=== PATIENT | female | born 1980 | race Caucasian/White ===

== ENCOUNTER 2017-03-29 07:53 | Inpatient (IN) | payer MEDICAID, OTHER ==
[~2017-03-29] VITALS: Ht 165.1 cm; Wt 70.9 kg
[2017-03-29] MEDS ORDERED: LACTATED RINGERS 1,000 ML IV SCH ×2 (12:30→12:33)
[2017-03-29] MEDS ORDERED: OXYTOCIN 30U/ 0.9% NaCL 500ML 500 ML IV SCH (12:33)
[2017-03-29] MEDS ORDERED: SODIUM CITRATE/CITRIC ACID 30 ML UDC ONE (12:49)
[2017-03-29] MEDS ORDERED: NEWBORN KIT ONE (12:49)
[2017-03-29] MEDS ORDERED: METOCLOPRAMIDE 5 MG/ML, 2ML ONE (12:49)
[2017-03-29] MEDS ORDERED: OXYTOCIN 30U/ 0.9% NaCL 500ML 500 ML ONE ×2 (12:49→15:29)
[2017-03-29] MEDS ORDERED: METOCLOPRAMIDE 5 MG/ML, 2ML IV ONE (13:00)
[2017-03-29] MEDS ORDERED: LACTATED RINGERS 1,000 ML IVBOLUS ONE (13:00)
[2017-03-29] MEDS ORDERED: SODIUM CITRATE/CITRIC ACID 30 ML UDC PO ONE (13:00)
[2017-03-29 13:05] LABS: BASOPHILS # (AUTO) 0.02 x10^3/uL (0-0.1); BASOPHILS % (AUTO) 0 % (0-1); EOSINOPHILS # (AUTO) 0.03 x10^3/uL (0-0.4); EOSINOPHILS % (AUTO) 0 % (1-7); LYMPHOCYTES # (AUTO) 1.26 x10^3/uL (1-3.4); LYMPHOCYTES % (AUTO) 18 % (22-44); MD NO; MEAN CORPUSCULAR HEMOGLOBIN 30.1 pg (27.0-34.8); MEAN CORPUSCULAR HGB CONC 34.3 g/dL (32.4-35.8); MEAN CORPUSCULAR VOLUME 87.7 fL (80-100); MONOCYTES # (AUTO) 0.71 x10^3/uL (0.2-0.8); MONOCYTES % (AUTO) 10 % (2-9); NEUTROPHILS # (AUTO) 4.92 x10^3/uL (1.8-6.8); NEUTROPHILS % (AUTO) 71 % (42-75); PLATELET COUNT 168 x10^3/uL (130-400); RED BLOOD COUNT 3.77 x10^6/uL (3.82-5.3)
[2017-03-29] MEDS: LACTATED RINGERS 1,000 ML IV SCH ×4 (13:39→21:39)
[2017-03-29] MEDS: OXYTOCIN 30U/ 0.9% NaCL 500ML 500 ML IV SCH ×2 (13:39→23:39)
[2017-03-29] MEDS ORDERED: KETOROLAC 30 MG/1 ML ONE (13:45)
[2017-03-29] MEDS ORDERED: ONDANSETRON 2MG/ML, 2ML ONE (13:45)
[2017-03-29] MEDS ORDERED: EPHEDRINE 50 MG/ML, 1ML ONE (13:45)
[2017-03-29] MEDS ORDERED: FENTANYL PF 100 MCG/2ML ONE (13:45)
[2017-03-29] MEDS ORDERED: CEFAZOLIN 1,000 MG ONE (13:45)
[2017-03-29] MEDS ORDERED: OXYTOCIN 10 UNITS/ML, 1ML ONE (13:45)
[2017-03-29] MEDS ORDERED: DEXAMETHASONE 4 MG/ML, 1ML ONE (13:45)
[2017-03-29] MEDS ORDERED: PHENYLEPHRINE 10 MG/ML ONE (13:45)
[2017-03-29] MEDS ORDERED: ONDANSETRON 2MG/ML, 2ML IV PRN (14:00)
[2017-03-29] MEDS ORDERED: OXYcodone 5 MG/5 ML ORAL.SOL UDC PO PRN (14:00)
[2017-03-29] MEDS ORDERED: HYDROcodone/APAP 7.5-325MG/15ML UDC PO PRN (14:00)
[2017-03-29] MEDS ORDERED: OXYcodone IR 5MG TABLET PO PRN (14:00)
[2017-03-29] MEDS ORDERED: PROMETHAZINE 25 MG/ML, 1ML IV PRN (14:00)
[2017-03-29] MEDS ORDERED: BISACODYL 10 MG SUPP PR PRN (14:00)
[2017-03-29] MEDS ORDERED: METHYLERGONOVINE 0.2 MG/ML IM PRN (14:00)
[2017-03-29] MEDS ORDERED: SIMETHICONE 80 MG CHEW TAB PO PRN (14:00)
[2017-03-29] MEDS ORDERED: MISOPROSTOL 200 MCG TABLET PR PRN (14:00)
[2017-03-29] MEDS ORDERED: FENTANYL PF 100 MCG/2ML IV PRN (14:00)
[2017-03-29] MEDS ORDERED: hydrALAzine 20 MG/ML, 1ML IV PRN (14:00)
[2017-03-29] MEDS ORDERED: CALCIUM CARBONATE 500 MG TAB.CHEW PO PRN (14:00)
[2017-03-29] MEDS ORDERED: ALBUTEROL SULFATE 2.5 MG/3 ML NPPB PRN (14:00)
[2017-03-29] MEDS: KETOROLAC 30 MG/1 ML IV SCH ×2 (14:00→20:10)
[2017-03-29] MEDS ORDERED: LABETALOL 5MG/ML, 20ML IV PRN (14:00)
[2017-03-29] MEDS ORDERED: HYDROmorphone 1 MG/ML, 1ML IV PRN (14:00)
[2017-03-29] MEDS: IBUPROFEN 600 MG TABLET PO SCH ×2 (14:00→20:00)
[2017-03-29] MEDS ORDERED: EPHEDRINE 50 MG/ML, 1ML IVPush PRN (14:00)
[2017-03-29] MEDS ORDERED: ONDANSETRON 2MG/ML, 2ML IVPush PRN (14:00)
[2017-03-29] MEDS ORDERED: MEPERIDINE/PF 25MG/0.5ML IVPush PRN (14:00)
[2017-03-29] MEDS ORDERED: morphine SULFATE 10 MG/ML, 1ML IVPush PRN ×2 (14:00)
[2017-03-29] MEDS ORDERED: MIDAZOLAM 1 MG/ML, 2ML IV PRN (14:00)
[2017-03-29] MEDS ORDERED: OXYTOCIN 30U/ 0.9% NaCL 500ML 500 ML IV ONE (15:34)
[2017-03-29] MEDS ORDERED: OXYcodone 5 MG/5 ML ORAL.SOL UDC ONE (16:58)
[2017-03-29 19:45] VITALS: BP 120/66
[2017-03-29 22:18] LABS: BASOPHILS % (AUTO) 0 % (0-1); EOSINOPHILS % (AUTO) 0 % (1-7); LYMPHOCYTES # (AUTO) 0.91 x10^3/uL (1-3.4); LYMPHOCYTES % (AUTO) 7 % (22-44); MD NO; MEAN CORPUSCULAR HEMOGLOBIN 30.3 pg (27.0-34.8); MEAN CORPUSCULAR HGB CONC 33.9 g/dL (32.4-35.8); MEAN CORPUSCULAR VOLUME 89.2 fL (80-100); MEAN PLATELET VOLUME 7.4 fL (7.4-10.4); MONOCYTES # (AUTO) 0.47 x10^3/uL (0.2-0.8); MONOCYTES % (AUTO) 4 % (2-9); NEUTROPHILS # (AUTO) 11.94 x10^3/uL (1.8-6.8); NEUTROPHILS % (AUTO) 90 % (42-75); PLATELET COUNT 155 x10^3/uL (130-400); RED CELL DISTRIBUTION WIDTH 12.5 % (9.6-15.2)
[2017-03-30] MEDS: OXYcodone IR 5MG TABLET PO PRN ×5 (00:06→19:59)
[2017-03-30] MEDS: ACETAMINOPHEN 325 MG TABLET PO SCH ×5 (00:07→18:20)
[2017-03-30 00:15] VITALS: BP 110/66
[2017-03-30] MEDS: KETOROLAC 30 MG/1 ML IV SCH ×2 (01:52→08:11)
[2017-03-30] MEDS: IBUPROFEN 600 MG TABLET PO SCH ×4 (02:00→19:59)
[2017-03-30 03:55] VITALS: BP 112/68
[2017-03-30] MEDS: LACTATED RINGERS 1,000 ML IV SCH ×2 (05:39→09:39)
[2017-03-30 07:55] VITALS: BP 104/65
[2017-03-30] MEDS: PRENATAL VIT/IRON/FA 1 EACH TABLET PO SCH (08:11)
[2017-03-30] MEDS: DOCUSATE 100 MG CAPSULE PO PRN ×2 (08:11→19:59)
[2017-03-30] MEDS: OXYTOCIN 30U/ 0.9% NaCL 500ML 500 ML IV SCH (09:39)
[2017-03-30 12:00] VITALS: BP 112/68
[2017-03-30 19:41] VITALS: BP 99/64
[2017-03-31] MEDS: ACETAMINOPHEN 325 MG TABLET PO SCH ×4 (00:03→18:05)
[2017-03-31] MEDS: IBUPROFEN 600 MG TABLET PO SCH ×4 (02:18→21:25)
[2017-03-31] MEDS: OXYcodone IR 5MG TABLET PO PRN (02:20)
[2017-03-31 07:45] VITALS: BP 110/71
[2017-03-31] MEDS: PRENATAL VIT/IRON/FA 1 EACH TABLET PO SCH (07:48)
[2017-03-31] MEDS: DOCUSATE 100 MG CAPSULE PO PRN ×2 (07:48→21:25)
[2017-03-31 19:25] VITALS: BP 129/79
[2017-04-01] MEDS: IBUPROFEN 600 MG TABLET PO SCH ×5 (03:49→23:46)
[2017-04-01] MEDS: ACETAMINOPHEN 325 MG TABLET PO SCH ×4 (06:10→17:55)
[2017-04-01 07:54] VITALS: BP 118/78
[2017-04-01] MEDS: DOCUSATE 100 MG CAPSULE PO PRN (10:03)
[2017-04-01] MEDS: PRENATAL VIT/IRON/FA 1 EACH TABLET PO SCH (10:03)
[2017-04-01 19:08] VITALS: BP 114/78
[2017-04-02 07:25] VITALS: BP 113/75
[2017-04-02] MEDS: PRENATAL VIT/IRON/FA 1 EACH TABLET PO SCH (08:24)
[2017-04-02] MEDS: ACETAMINOPHEN 325 MG TABLET PO SCH ×2 (08:24)
[2017-04-02] MEDS: DOCUSATE 100 MG CAPSULE PO PRN (08:24)
[2017-04-02] MEDS: IBUPROFEN 600 MG TABLET PO SCH (10:33)
[2017-04-02] MEDS ORDERED: IBUP-1222 PO (13:00)
[2017-04-02] MEDS ORDERED: DOCU-131 PO (13:04)
[2017-04-02] MEDS ORDERED: OXYC-302 PO (13:05)
[2017-04-02] MEDS ORDERED: PREN1TAB98 PO (13:07)
== END 2017-04-02 17:04 | disposition home or self-care (01) | DRG 766 ==
LOC: LDIP 12:04 → 2NW 17:11
PROVIDERS: ADMIT Obstetrics & Gynecology; ATTEND Obstetrics & Gynecology
PROC: 10D00Z1 Extraction of Products of Conception, Low, Open Approach (ICD-10-PCS; principal; 2017-03-29)
DX: O32.1XX0 Maternal care for breech presentation, not applicable or unspecified (principal); D25.2 Subserosal leiomyoma of uterus; O34.13 Maternal care for benign tumor of corpus uteri, third trimester; Z37.0 Single live birth; Z3A.39 39 weeks gestation of pregnancy
CPT/HCPCS: 36415; 85025; 86850; 86900; J0690; J1100; J1885; J2405; J3010; J2370; J2590; J2765; J7120

== ENCOUNTER 2019-10-10 12:09 | Outpatient (CLI) | payer BC, OTHER ==
[~2019-10-10 12:09] MED LIST: DOCU-131 PO; IBUP-1222 PO; OXYC-302 PO; PREN1TAB98 PO
== END 2019-10-10 23:59 | disposition home or self-care (01) ==
LOC: SMMGROBB 12:09
PROVIDERS: ATTEND Obstetrics & Gynecology
DX: Z11.59 Encounter for screening for other viral diseases (principal)
CPT/HCPCS: 36415; 87635

== ENCOUNTER 2019-10-20 22:56 | Inpatient (IN) | payer BC ==
[~2019-10-20] VITALS: Ht 165.1 cm; Wt 75.0 kg
[2019-10-20] MEDS ORDERED: OXYTOCIN 30U/ 0.9% NaCL 500ML 500 ML IV ONE (22:58)
[2019-10-20] MEDS ORDERED: LACTATED RINGERS 1,000 ML IV SCH (22:58)
[2019-10-20] MEDS ORDERED: D5%-LACTATED RINGERS 1,000 ML IV SCH (22:58)
[2019-10-20] MEDS ORDERED: TERBUTALINE 1 MG/ML, 1ML SQ PRN (23:00)
[2019-10-20] MEDS ORDERED: TERBUTALINE 1 MG/ML, 1ML IVPush PRN (23:00)
[2019-10-20] MEDS ORDERED: FENTANYL PF 100 MCG/2ML IVPush PRN (23:00)
[2019-10-20] MEDS ORDERED: SODIUM CITRATE/CITRIC ACID 30 ML UDC PO PRN (23:00)
[2019-10-20] MEDS ORDERED: METOCLOPRAMIDE 5 MG/ML, 2ML IVPush PRN (23:00)
[2019-10-20] MEDS ORDERED: ONDANSETRON 2MG/ML, 2ML IVPush PRN (23:00)
[2019-10-20] MEDS ORDERED: CALCIUM CARBONATE 500 MG TAB.CHEW PO PRN (23:00)
[2019-10-20] MEDS ORDERED: NEWBORN KIT ONE (23:01)
[2019-10-20] MEDS ORDERED: OXYTOCIN 30U/ 0.9% NaCL 500ML 500 ML ONE (23:02)
[2019-10-20] MEDS ORDERED: MISOPROSTOL 200 MCG TABLET ONE (23:02)
[2019-10-20] MEDS ORDERED: LIDOCAINE 1%, 20ML ONE (23:02)
[2019-10-20 23:21] LABS: BASOPHILS # (AUTO) 0.06 x10^3/uL (0-0.1); BASOPHILS % (AUTO) 1 % (0-1); EOSINOPHILS # (AUTO) 0.15 x10^3/uL (0-0.4); EOSINOPHILS % (AUTO) 1 % (1-7); LYMPHOCYTES # (AUTO) 1.59 x10^3/uL (1-3.4); LYMPHOCYTES % (AUTO) 15 % (22-44); MD NO; MEAN CORPUSCULAR HEMOGLOBIN 29.5 pg (27.0-34.8); MEAN CORPUSCULAR HGB CONC 33.6 g/dL (32.4-35.8); MEAN CORPUSCULAR VOLUME 87.9 fL (80-100); MEAN PLATELET VOLUME 7.9 fL (7.4-10.4); MONOCYTES # (AUTO) 0.94 x10^3/uL (0.2-0.8); MONOCYTES % (AUTO) 9 % (2-9); NEUTROPHILS # (AUTO) 7.91 x10^3/uL (1.8-6.8); NEUTROPHILS % (AUTO) 74 % (42-75); PLATELET COUNT 188 x10^3/uL (130-400); RED BLOOD COUNT 4.06 x10^6/uL (3.82-5.3); RED CELL DISTRIBUTION WIDTH 13.4 % (9.6-15.2)
[2019-10-21] MEDS: OXYTOCIN 30U/ 0.9% NaCL 500ML 500 ML IV SCH ×2 (01:12→11:12)
[2019-10-21] MEDS ORDERED: OXYTOCIN 30U/ 0.9% NaCL 500ML 500 ML IV SCH ×2 (01:12)
[2019-10-21] MEDS ORDERED: OXYcodone/APAP 5/325MG TABLET ONE (01:23)
[2019-10-21] MEDS ORDERED: IBUPROFEN 600 MG TABLET ONE (01:23)
[2019-10-21] MEDS: IBUPROFEN 600 MG TABLET PO PRN ×4 (01:28→20:03)
[2019-10-21] MEDS: OXYcodone/APAP 5/325MG TABLET PO PRN ×5 (01:29→20:04)
[2019-10-21] MEDS ORDERED: SIMETHICONE 80 MG CHEW TAB PO PRN ×2 (01:30)
[2019-10-21] MEDS ORDERED: CARBOPROST TROMETHAMINE 250 MCG/ML, 1ML IM PRN (01:30)
[2019-10-21] MEDS ORDERED: MISOPROSTOL 200 MCG TABLET PR PRN (01:30)
[2019-10-21] MEDS ORDERED: METHYLERGONOVINE 0.2 MG/ML IM PRN (01:30)
[2019-10-21] MEDS ORDERED: DOCUSATE 100 MG CAPSULE PO PRN (01:30)
[2019-10-21] MEDS ORDERED: ACETAMINOPHEN 325 MG TABLET PO PRN ×2 (01:30)
[2019-10-21] MEDS ORDERED: DIPH,PERTUSS(ACELL),TET VAC/PF NC IM-VACC PRN (01:30)
[2019-10-21 03:15] VITALS: BP 108/69
[2019-10-21 07:30] VITALS: BP 101/64
[2019-10-21] MEDS: PRENATAL VIT/IRON/FA 1 EACH TABLET PO SCH (07:47)
[2019-10-21] MEDS: DOCUSATE 100 MG CAPSULE PO PRN ×2 (07:47→20:03)
[2019-10-21 08:59] LABS: MEAN CORPUSCULAR HEMOGLOBIN 29.2 pg (27.0-34.8); MEAN CORPUSCULAR HGB CONC 32.7 g/dL (32.4-35.8); MEAN CORPUSCULAR VOLUME 89.4 fL (80-100); MEAN PLATELET VOLUME 7.7 fL (7.4-10.4); PLATELET COUNT 155 x10^3/uL (130-400); RED BLOOD COUNT 3.62 x10^6/uL (3.82-5.3); RED CELL DISTRIBUTION WIDTH 13.4 % (9.6-15.2)
[2019-10-21 09:22] LABS: BASOPHILS # (AUTO) 0.02 x10^3/uL (0-0.1); BASOPHILS % (AUTO) 0 % (0-1); EOSINOPHILS # (AUTO) 0.01 x10^3/uL (0-0.4); EOSINOPHILS % (AUTO) 0 % (1-7); LYMPHOCYTES # (AUTO) 1.33 x10^3/uL (1-3.4); LYMPHOCYTES % (AUTO) 8 % (22-44); MD SCAN; MONOCYTES # (AUTO) 1.27 x10^3/uL (0.2-0.8); MONOCYTES % (AUTO) 8 % (2-9); NEUTROPHILS # (AUTO) 13.96 x10^3/uL (1.8-6.8); NEUTROPHILS % (AUTO) 84 % (42-75)
[2019-10-21 12:00] VITALS: BP 101/63
[2019-10-21 16:30] VITALS: BP 100/62
[2019-10-21 20:09] VITALS: BP 110/73
[2019-10-22 00:09] VITALS: BP 103/60
[2019-10-22] MEDS: PRENATAL VIT/IRON/FA 1 EACH TABLET PO SCH (08:21)
[2019-10-22] MEDS: IBUPROFEN 600 MG TABLET PO PRN ×2 (08:21→14:20)
[2019-10-22] MEDS: DOCUSATE 100 MG CAPSULE PO PRN (08:21)
[2019-10-22] MEDS ORDERED: DOCU100C33 PO (08:58)
[2019-10-22] MEDS ORDERED: IBUP-1222 PO (08:59)
[2019-10-22] MEDS ORDERED: OXYC-302 PO (09:00)
[2019-10-22 09:56] VITALS: BP 102/65
[2019-10-22] MEDS: OXYcodone/APAP 5/325MG TABLET PO PRN (14:20)
== END 2019-10-22 14:25 | disposition home or self-care (01) | DRG 768 ==
LOC: LDOP 22:56 → LDIP 22:58 → 2NW 10-21 02:46
PROVIDERS: ADMIT Obstetrics & Gynecology; ATTEND Obstetrics & Gynecology
PROC: 10E0XZZ Delivery of Products of Conception, External Approach (ICD-10-PCS; principal; 2019-10-21)
PROC: 0DQR0ZZ Repair Anal Sphincter, Open Approach (ICD-10-PCS; 2019-10-21)
DX: O34.211 Maternal care for low transverse scar from previous cesarean delivery (principal); Z37.0 Single live birth; O70.20 Third degree perineal laceration during delivery, unspecified; Z3A.40 40 weeks gestation of pregnancy; Z88.0 Allergy status to penicillin; Z88.1 Allergy status to other antibiotic agents
CPT/HCPCS: 36415; 85025; 86592; 86850; 86900; G0378; J2590; J7120